=== PATIENT | male | born 1965 | race Two or more races ===

== ENCOUNTER 2020-06-23 10:16 | Emergency (ER) | payer MEDICAID, OTHER ==
[~2020-06-23] VITALS: Ht 165.1 cm; Wt 108.9 kg
[2020-06-23 10:19] VITALS: BP 135/57
[2020-06-23] MEDS ORDERED: ACETAMINOPHEN 325 MG TAB PO ONE (10:30)
[2020-06-23] MEDS ORDERED: cefTRIAXone W LIDOCAINE 1 GM IM IM ONE (11:15)
[2020-06-23] MEDS ORDERED: LIDOCAINE 1% HCL (LOCAL ANESTH.) INJ 20ML MDV ONE (12:06)
[2020-06-23] MEDS ORDERED: cefTRIAXone SOD 1,000 MG VL IM ONE (12:15)
== END 2020-06-23 13:16 | disposition home or self-care (01) ==
LOC: ER 10:16
DX: L03.116 Cellulitis of left lower limb (principal); R50.9 Fever, unspecified; Z20.828 Contact with and (suspected) exposure to other viral communicable diseases
CPT/HCPCS: 36415; 71045; 87426; 93971; 96372; 99285; J0696; J2001